=== PATIENT | female | born 1985 | race Caucasian/White ===

== ENCOUNTER 2018-07-26 06:19 | Observation (INO) | payer BC ==
[2018-07-26] MEDS: SOD CHLORIDE 0.9% 1,000 ML IV ×2 (06:00→15:27)
[2018-07-26 08:24] LABS: ADD MAN DIFF? NO
[2018-07-26 08:27] LABS: WHITE BLOOD COUNT 8.7 10^3/ul (4.8-10.8)
[2018-07-26 08:27] LABS: BASOPHIL # 0.1 10^3/ul (0.0-0.1); BASOPHILS % 0.6 % (0.0-2.0); EOSINOPHILS # 0.1 10^3/ul (0.0-0.5); HEMATOCRIT 41.3 % (37.0-47.0); HEMOGLOBIN 13.3 g/dl (12.0-16.0); LYMPHOCYTES # 2.9 10^3/ul (0.8-2.9); LYMPHOCYTES % 33.3 % (15.0-51.0); MEAN CORPUSCULAR HEMOGLOBIN 28.5 pg (29.0-33.0); MEAN CORPUSCULAR HGB CONC 32.2 g/dl (32.0-37.0); MEAN CORPUSCULAR VOLUME 88.4 fl (82.0-101.0); MEAN PLATELET VOLUME 10.3 fl (7.4-10.4); MONOCYTE # 0.5 10^3/ul (0.3-0.9); MONOCYTES % 5.9 % (0.0-11.0); NEUTROPHIL # 5.2 10^3/ul (1.6-7.5); PLATELET COUNT 269 10^3/UL (140-415); RED BLOOD COUNT 4.67 10^6/ul (4.20-5.40); RED CELL DISTRIBUTION WIDTH 13.4 % (11.5-14.5)
[2018-07-26 08:31] LABS: INR 0.93; PROTIME 12.6 Sec (11.9-14.9)
[2018-07-26 08:32] LABS: PARTIAL THROMBOPLASTIN TIME 28.3 Sec (23.0-35.0)
[2018-07-26 08:33] LABS: ALANINE AMINOTRANSFERASE 48 IU/L (13-69); ALBUMIN/GLOBULIN RATIO 1.05; ALKALINE PHOSPHATASE 113 IU/L (42-121); ANION GAP 8 (5-13); ASPARTATE AMINO TRANSFERASE 24 IU/L (15-46); BLOOD UREA NITROGEN 12 mg/dl (7-20); CALCIUM 8.8 mg/dl (8.4-10.2); CARBON DIOXIDE 26 mmol/L (21-31); CHLORIDE 106 mmol/L (97-110); CREATININE 0.68 mg/dl (0.44-1.00); Estimated GFR > 60 mL/min (>60); GLUCOSE 105 mg/dl (70-220); POTASSIUM 4.1 mmol/L (3.5-5.1); SODIUM 140 mmol/L (135-144); TOTAL PROTEIN 7.8 g/dl (6.1-8.1)
[2018-07-26] MEDS ORDERED: HYDROmorphONE 1 MG/5 ML IV SYRINGE IV ×3 (09:00)
[2018-07-26] MEDS ORDERED: ALBUTEROL 0.083% (NEB) 2.5 MG/3 ML AMP HHN (09:00)
[2018-07-26] MEDS ORDERED: METOCLOPRAMIDE 10 MG INJ IV (09:00)
[2018-07-26] MEDS ORDERED: DIPHENHYDRAMINE 50 MG INJ IV (09:00)
[2018-07-26] MEDS ORDERED: FENTAnyl 50 MCG/ML VIAL IV ×2 (09:00)
[2018-07-26] MEDS ORDERED: MEPERIDINE 25 MG INJ IV (09:00)
[2018-07-26] MEDS ORDERED: FENTAnyl 50 MCG/ML VIAL (09:24)
[2018-07-26] MEDS ORDERED: ROPIVACAINE 0.5 % 30 ML VIAL (09:24)
[2018-07-26] MEDS ORDERED: SUGAMMADEX SODIUM 200 MG/2 ML VIAL IV (10:14)
[2018-07-26] MEDS ORDERED: PROPOFOL 40 ML (10:14)
[2018-07-26] MEDS ORDERED: CEFAZOLIN 1 GM INJ (10:14)
[2018-07-26] MEDS ORDERED: SUCCINYLCHOLINE CHLORIDE 100 MG/5 ML SYG IV (10:14)
[2018-07-26] MEDS ORDERED: ROCURONIUM 50 MG INJ (10:14)
[2018-07-26] MEDS ORDERED: LIDOCAINE 100 MG SYRINGE (10:14)
[2018-07-26] MEDS: ONDANSETRON 4 MG INJ IV ×2 (10:45→18:30)
[2018-07-26] MEDS: FENTAnyl 50 MCG/ML VIAL IV (10:45)
[2018-07-26] MEDS: OXYCODONE/ACETAMINOPHEN (5/325) TAB PO (12:12)
[2018-07-26] MEDS: HYDROmorphONE 1 MG/ML SYG IV ×3 (12:46→14:11)
[2018-07-26] MEDS ORDERED: HYDROmorphONE 1 MG/ML SYG IV (13:00)
[2018-07-26] MEDS ORDERED: KETOROLAC 15 MG INJ IV (14:24)
[2018-07-26] MEDS: CEFAZOLIN 2 GM/50 ML (PMX) 50 ML IVPB (15:17)
[2018-07-26] MEDS ORDERED: ACETAMINOPHEN 325 MG TAB PO (18:30)
[2018-07-26] MEDS: morphine 2 MG INJ IV ×2 (18:30→21:42)
[2018-07-26] MEDS: DEXTROSE 5%-0.9% NACL 1,000 ML IV (18:31)
[2018-07-26 20:52] LABS: ALANINE AMINOTRANSFERASE 104 IU/L (13-69); ALBUMIN 3.5 g/dl (3.3-4.9); ALBUMIN/GLOBULIN RATIO 1.09; ALKALINE PHOSPHATASE 79 IU/L (42-121); ANION GAP 7 (5-13); ASPARTATE AMINO TRANSFERASE 92 IU/L (15-46); BLOOD UREA NITROGEN 12 mg/dl (7-20); CALCIUM 8.4 mg/dl (8.4-10.2); CARBON DIOXIDE 25 mmol/L (21-31); CHLORIDE 107 mmol/L (97-110); CREATININE 0.62 mg/dl (0.44-1.00); Estimated GFR > 60 mL/min (>60); GLUCOSE 125 mg/dl (70-220); POTASSIUM 4.2 mmol/L (3.5-5.1); SODIUM 139 mmol/L (135-144); TOTAL PROTEIN 6.7 g/dl (6.1-8.1)
[2018-07-27] MEDS: morphine 2 MG INJ IV ×2 (00:43→02:49)
[2018-07-27 04:54] LABS: ADD MAN DIFF? NO
[2018-07-27 05:02] LABS: WHITE BLOOD COUNT 10.6 10^3/ul (4.8-10.8)
[2018-07-27 05:02] LABS: BASOPHILS % 0.3 % (0.0-2.0); EOSINOPHILS # 0.1 10^3/ul (0.0-0.5); EOSINOPHILS % 0.9 % (0.0-7.0); HEMATOCRIT 36.9 % (37.0-47.0); HEMOGLOBIN 11.9 g/dl (12.0-16.0); LYMPHOCYTES # 2.9 10^3/ul (0.8-2.9); MEAN CORPUSCULAR HEMOGLOBIN 28.8 pg (29.0-33.0); MEAN CORPUSCULAR HGB CONC 32.2 g/dl (32.0-37.0); MEAN CORPUSCULAR VOLUME 89.3 fl (82.0-101.0); MEAN PLATELET VOLUME 9.5 fl (7.4-10.4); MONOCYTE # 0.7 10^3/ul (0.3-0.9); MONOCYTES % 6.3 % (0.0-11.0); NEUTROPHIL # 6.9 10^3/ul (1.6-7.5); NEUTROPHILS % 65.3 % (39.0-77.0); PLATELET COUNT 275 10^3/UL (140-415); RED BLOOD COUNT 4.13 10^6/ul (4.20-5.40); RED CELL DISTRIBUTION WIDTH 13.6 % (11.5-14.5)
[2018-07-27 05:31] LABS: ALANINE AMINOTRANSFERASE 89 IU/L (13-69); ALBUMIN/GLOBULIN RATIO 0.93; ALKALINE PHOSPHATASE 78 IU/L (42-121); ANION GAP 5 (5-13); ASPARTATE AMINO TRANSFERASE 64 IU/L (15-46); BILIRUBIN,INDIRECT 0.9 mg/dl (0-1.1); BILIRUBIN,TOTAL 0.9 mg/dl (0.2-1.3); BLOOD UREA NITROGEN 9 mg/dl (7-20); CALCIUM 8.1 mg/dl (8.4-10.2); CARBON DIOXIDE 27 mmol/L (21-31); CHLORIDE 107 mmol/L (97-110); CREATININE 0.61 mg/dl (0.44-1.00); Estimated GFR > 60 mL/min (>60); GLUCOSE 128 mg/dl (70-220); POTASSIUM 4.4 mmol/L (3.5-5.1); SODIUM 139 mmol/L (135-144); TOTAL PROTEIN 6.2 g/dl (6.1-8.1)
[2018-07-27] MEDS: PANTOPRAZOLE 40 MG INJ IV (05:43)
[2018-07-27] MEDS: ONDANSETRON 4 MG INJ IV ×3 (05:50→22:35)
[2018-07-27] MEDS: HYDROCODONE/APAP (5/325) TAB PO ×2 (05:50→09:02)
[2018-07-27] MEDS: DEXTROSE 5%-0.9% NACL 1,000 ML IV ×2 (09:02→23:06)
[2018-07-27] MEDS: OXYCODONE/ACETAMINOPHEN (5/325) TAB PO ×3 (11:32→22:35)
[2018-07-28] MEDS: PANTOPRAZOLE (EC) 40 MG TAB PO (05:43)
[2018-07-28 06:14] LABS: HEMOGLOBIN A1C 5.7 % (0-5.9)
[2018-07-28 06:29] LABS: ALANINE AMINOTRANSFERASE 82 IU/L (13-69); ALBUMIN 3.2 g/dl (3.3-4.9); ALBUMIN/GLOBULIN RATIO 1.03; ALKALINE PHOSPHATASE 77 IU/L (42-121); ANION GAP 3 (5-13); ASPARTATE AMINO TRANSFERASE 46 IU/L (15-46); BILIRUBIN,INDIRECT 0.7 mg/dl (0-1.1); BILIRUBIN,TOTAL 0.7 mg/dl (0.2-1.3); BLOOD UREA NITROGEN 7 mg/dl (7-20); CALCIUM 8.5 mg/dl (8.4-10.2); CARBON DIOXIDE 31 mmol/L (21-31); CHLORIDE 103 mmol/L (97-110); CREATININE 0.75 mg/dl (0.44-1.00); Estimated GFR > 60 mL/min (>60); GLUCOSE 108 mg/dl (70-220); POTASSIUM 4.3 mmol/L (3.5-5.1); SODIUM 137 mmol/L (135-144); TOTAL PROTEIN 6.3 g/dl (6.1-8.1)
[2018-07-28] MEDS: NA PHOSPHATE/BIPHOS 133 ML ENEMA PR (10:59)
[2018-07-28] MEDS: OXYCODONE/ACETAMINOPHEN (5/325) TAB PO (11:22)
[2018-07-28] MEDS: ONDANSETRON 4 MG TAB PO (14:58)
[2018-07-28] MEDS: DEXTROSE 5%-0.9% NACL 1,000 ML IV (15:01)
== END 2018-07-28 18:16 | disposition home or self-care (01) ==
LOC: SDS 06:19 → REC 14:43 → PP2 14:46
DX: K80.10 Calculus of gallbladder with chronic cholecystitis without obstruction (principal); E66.01 Morbid (severe) obesity due to excess calories; Z68.43 Body mass index [BMI] 50.0-59.9, adult; D64.9 Anemia, unspecified; R73.03 Prediabetes
CPT/HCPCS: 47562; 80053; 83036; 84703; 85025; 85610; 85730; 88304

== ENCOUNTER 2018-08-05 03:07 | Emergency (ER) | payer BC | END 2018-08-05 06:06 | disposition home or self-care (01) | LOC: E/R 06:06 | DX: T81.31XA Disruption of external operation (surgical) wound, not elsewhere classified, initial encounter (principal); Y73.2 Prosthetic and other implants, materials and accessory gastroenterology and urology devices associated with adverse incidents; Z87.891 Personal history of nicotine dependence; Z90.49 Acquired absence of other specified parts of digestive tract | CPT/HCPCS: 12020; 99282-25 ==